=== PATIENT | male | born 1975 | race Caucasian/White ===

== ENCOUNTER 2017-03-16 07:58 | Emergency (ER) | payer OTHER ==
[2017-03-16 09:10] LABS: Eosinophils % (Auto) 0.7 % (0.0-4.3); Hematocrit 45.6 % (35.5-45.6); Hemoglobin 15.4 gm/dl (11.8-15.2); Mean Corpuscular HGB Conc 34 % (32-34); Mean Corpuscular Hemoglobin 31 pg (28-32); Mean Corpuscular Volume 92 fl (84-94); Platelet Count 173 K/mm3 (140-440); Red Blood Count 4.98 M/mm3 (3.65-5.03); Red Cell Distribution Width 16.3 % (13.2-15.2); White Blood Count 3.7 K/mm3 (4.5-11.0)
[2017-03-16 09:13] LABS: Urine Drugs of Abuse Note Disclamer
[2017-03-16 09:17] LABS: Anion Gap 25 mmol/L; BUN/Creatinine Ratio 18.57; Blood Urea Nitrogen 13 mg/dL (9-20); Calcium 8.2 mg/dL (8.4-10.2); Carbon Dioxide 21 mmol/L (22-30); Chloride 99.1 mmol/L (98-107); Glucose 86 mg/dL (75-100); Potassium 3.8 mmol/L (3.6-5.0); Sodium 141 mmol/L (137-145)
[2017-03-16 09:36] LABS: Bacteria,Urine 1+ /HPF (Negative); Bilirubin,Urine NEG (Negative); Blood,Urine MOD (Negative); Ketones,Urine 20 mg/dL (Negative); Leukocyte Esterase,Urine NEG (Negative); Mucus,Urine 2+ /HPF; Nitrite,Urine NEG (Negative)
--- NOTE | 2017-03-16 10:58 | Consultation ---
History of Present Illness - Reason for Consult Reason for consult: depression, etoh intoxication Medications and Allergies Allergies Allergy/AdvReac Type Severity Reaction Status Date / Time Penicillins Allergy Swelling Verified 03/16/17 08:38 Mental Status Exam - Vital signs Last Vital Signs Temp 98.8 F 03/16/17 08:38 Pulse 109 H 03/16/17 08:38 Resp 20 03/16/17 10:40 BP 142/98 03/16/17 08:38 Pulse Ox 98 03/16/17 10:40 Results Result Diagrams: 03/16/17 08:47 03/16/17 08:47 Abnormal lab results 03/16/17 03/16/17 03/16/17 Range/Units 08:47 08:47 08:47 WBC 3.7 L (4.5-11.0) K/mm3 Hgb 15.4 H (11.8-15.2) gm/dl RDW 16.3 H (13.2-15.2) % [place] % (Auto) 12.3 H (0.0-7.3) % Baso % (Auto) 2.0 H (0.0-1.8) % Lymph # 0.6 L (1.2-5.4) K/mm3 Carbon Dioxide 21 L (22-30) mmol/L Creatinine 0.7 L (0.8-1.5) mg/dL Calcium 8.2 L (8.4-10.2) mg/dL Plasma/Serum Alcohol 0.38 H (0-0.07) gm% All other labs normal. Assessment and Plan Assessment and plan: CHIEF COMPLAINT IN PATIENTS WORDS: HISTORY OF PRESENT ILLNESS REQUIRING ADMISSION TO INPATIENT LEVEL OF CARE: (Describe the onset of Illness, Intensity of Symptoms, and Circumstances Leading to Admission) This is a 41 year-old domiciled male who reports no formal past psychiatric diagnosis or treatment now currently presenting to the ER due to several weeks history of poor sleep onset and associated alcohol abuse. Patient notes that he is undergoing a separation from his due to marital conflict and infidelity. Currently on examination, the patient is very dysphoric and labile. Patient was tearful as well as elated during my examination, suggestive of a fairly labile affect. Patient notes very brief intervals of sleep for the past several weeks usually associated with copious amounts of alcohol use. Historically, patient notes that he has not received any treatment for mental health issues such as depression or bipolar disorder; however, patient does note that he was recently told he had bipolar disorder. Patient has been engaging in impulsive hypersexual behaviors, which led to the infidelity and consequent marital discord. PSYCHIATRIC REVIEW OF SYSTEMS: Substance: UDS pending Depression: Currently reports a low mood, frequently tearful, socially isolated with poor sleep onset and maintenance Sadie: Mood is labile, patient has frequent periods of irritable moods, not hyperverbal currently Psychosis: No auditory or visual hallucinations noted, patient is having overvalued ideas about others talking or speaking about him while he has been in the ER. Anxiety/ OCD/ PTSD: Patient appears to be experiencing somatic symptoms of anxiety as he worries about his current situation such as stomach ache Suicidality: Currently patient reports suicidal thoughts with intrusive ego dystonic ideas of cutting his wrist Other Self-Injurious Behavior: none currently, no SIB noted recently Violent/ Aggressive Behavior: none noted CURRENT MEDICATIONS: ( Psychiatric and Non-psychiatric ) None ALLERGIES: Penicillins PAST PSYCHIATRIC HISTORY: ( Prior Treatment, Precipitating Factors, Diagnosis, and Course of Treatment ) Inpatient: none reported Outpatient: none reported Prior Suicide Attempts: Unable to recall or report Prior Self-Injurious Behaviors: Unable to recall or report PAST PSYCHIATRIC MEDICATION TRIALS: denies MEDICAL HISTORY: (Chronic and Acute Illnesses, Current Medical Treatment, Recent Hospitalizations) Denies Detoxification / Withdrawal: Currently appears fairly anxious no tremors noted. Vitals appear stable with mild tachycardia MENTAL STATUS EXAM: General Appearance: Dressed in hospital gown, dysphoric and tearful Sensorium/Consciousness: alert and responding to external stimuli Eye Contact: Fair Attitude / Behavior: cooperative Psychomotor & Musculoskeletal Activity: WNL Mood: Sad and withdrawn Affect: Labile Speech / Language: normal Thought Processes: organized, logical, linear Thought Content: SI with plan to cut wrist, ruminative Perception: no AVH Orientation: person, place, time, situation Judgment What would you do if you smelled smoke in a crowded movie theater?: poor/impulsive Insight: poor Intelligence Vocabulary, general fund of knowledge, educational level: Average Capacity of ADLs: Independent STRENGTHS: PSYCHOSOCIAL AND ENVIRONMENTAL STRESSORS: Recent marital discord and likely undergoing a divorce ADMITTING DIAGNOSES Psychiatric: Alcohol abuse Substance induce mood disorder Evidence for the following: Rule out major depression Rule out bipolar disorder Medical: n/a INITIAL PLAN OF CARE AND TREATMENT GOALS: Evaluate for signs and symptoms of withdrawal and placed on CIWA protocol if appropriate Give one-time dose of lorazepam 2 mg IM for anxiety/agitation Start trazodone 100 mg at bedtime for insomnia Place on 1012 and refer for inpatient psychiatric hospitalization
[2017-03-16] MEDS ORDERED: ATIVAN IM ONE (11:02)
--- NOTE | 2017-03-16 15:26 | Emergency Department Report ---
ED General Adult HPI - General Chief complaint: Psych Stated complaint: UNABLE TO SLEEP Time Seen by Provider: 03/16/17 15:06 Source: patient, EMS (ems notes not available at time of chart dictation), RN notes reviewed Mode of arrival: Ambulatory Limitations: No Limitations - History of Present Illness Initial comments: This is a 41-year-old male. He has a past medical history of alcohol abuse and bipolar disorder. The patient is brought to the hospital by EMS for suicidality and alcohol intoxication. The patient reported that he is getting a divorce from his . He reports that he is having a hard time coping. He reports that he is not overdosed, but he has contemplated overdose. He denies trauma. Denies headache, neck pain, chest pain, abdominal pain or shortness of breath. His symptoms are constant. There are no exacerbating or relieving factors. He does not have access to guns or firearms. -: unknown Consistency: constant Improves with: none Worsens with: none Associated Symptoms: denies: chest pain, malaise, nausea/vomiting - Related Data Allergies Allergy/AdvReac Type Severity Reaction Status Date / Time Penicillins Allergy Swelling Verified 03/16/17 11:18 ED Review of Systems ROS: Stated complaint: UNABLE TO SLEEP Other details as noted in HPI Constitutional: denies: fever, malaise Eyes: denies: vision change ENT: denies: epistaxis Respiratory: denies: cough Cardiovascular: denies: chest pain Genitourinary: as per HPI. denies: dysuria Musculoskeletal: denies: back pain Neurological: denies: abnormal gait, vertigo Psychiatric: depression, suicidal thoughts. denies: homicidal thoughts ED Past Medical Hx - Past Medical History Previous Medical History?: Yes Additional medical history: Alcohol abuse, Bipolar and no meds - Surgical History Past Surgical History?: Yes Additional Surgical History: Tonsillectomy - Social History Smoking Status: Current Every Day Smoker Substance Use Type: Alcohol ED Physical Exam - General Limitations: No Limitations General appearance: alert, in no apparent distress - Head Head exam: Present: atraumatic, normocephalic - Eye Eye exam: Present: normal appearance, EOMI. Absent: nystagmus - ENT ENT exam: Present: normal exam, normal orophraynx, mucous membranes moist, normal external ear exam - Neck Neck exam: Present: normal inspection, full ROM. Absent: tenderness, meningismus - Respiratory Respiratory exam: Present: normal lung sounds bilaterally. Absent: respiratory distress, wheezes, rales, rhonchi, stridor, chest wall tenderness, accessory muscle use, decreased breath sounds, prolonged expiratory - Cardiovascular Cardiovascular Exam: Present: regular rate, normal rhythm, normal heart sounds. Absent: bradycardia, tachycardia, irregular rhythm, systolic murmur, diastolic murmur, rubs, gallop - GI/Abdominal GI/Abdominal exam: Present: soft, normal bowel sounds. Absent: distended, tenderness, guarding, rebound, rigid - Rectal Rectal exam: Present: deferred - Extremities Exam Extremities exam: Present: normal inspection, full ROM, normal capillary refill. Absent: tenderness, pedal edema, joint swelling, calf tenderness - Back Exam Back exam: Present: normal inspection, full ROM. Absent: tenderness, CVA tenderness (R), CVA tenderness (L), muscle spasm, paraspinal tenderness, vertebral tenderness - Neurological Exam Neurological exam: Present: alert, oriented X3, normal gait, other (Extraocular movements intact. Tongue midline. No facial droop. Facial sensation intact to light touch in the V1, V2, V3 distribution bilaterally. 5 and 5 strength in 4 extremities.. Sensation is intact to light touch in 4 extremities.). Absent : motor sensory deficit - Psychiatric Psychiatric exam: Present: depressed, suicidal ideation. Absent: homicidal ideation - Skin Skin exam: Present: warm, dry, intact, normal color. Absent: rash ED Course Vital Signs 03/16/17 03/16/17 08:38 10:40 Temperature 98.8 F Pulse Rate 109 H Respiratory 20 20 Rate Blood Pressure 142/98 O2 Sat by Pulse 97 98 Oximetry - Reevaluation(s) Reevaluation #1: 03/16/17 15:25 Differential diagnosis: Suicidality, alcohol intoxication, medical clearance for psychiatric placement Assessment and plan: 41-year-old male with suicidality in the context of alcohol intoxication. He walks with a steady gait. There are no signs of head trauma. He is alert to name, place, year and month. He is currently intoxicated at this time, however there is no report of trauma, and his physical exam does not suggest any traumatic injury. He is placed on a 1013. Laboratory studies ordered. Psychiatric consult is ordered. Reevaluation #2: 03/16/17 15:53 care transferred to [facility], who will follow up on tylenol and aspirin levels. ED Medical Decision Making - Lab Data Result diagrams: 03/16/17 08:47 03/16/17 08:47 Vital Signs 03/16/17 03/16/17 08:38 10:40 Temperature 98.8 F Pulse Rate 109 H Respiratory 20 20 Rate Blood Pressure 142/98 O2 Sat by Pulse 97 98 Oximetry Lab Results 03/16/17 03/16/17 03/16/17 Range/Units 08:47 08:47 08:47 WBC 3.7 L (4.5-11.0) K/mm3 RBC 4.98 (3.65-5.03) M/mm3 Hgb 15.4 H (11.8-15.2) gm/dl Hct 45.6 (35.5-45.6) % MCV 92 (84-94) fl MCH 31 (28-32) pg MCHC 34 (32-34) % RDW 16.3 H (13.2-15.2) % Plt Count 173 (140-440) K/mm3 Lymph % (Auto) 17.3 (13.4-35.0) % [place] % (Auto) 12.3 H (0.0-7.3) % Eos % (Auto) 0.7 (0.0-4.3) % Baso % (Auto) 2.0 H (0.0-1.8) % Lymph # 0.6 L (1.2-5.4) K/mm3 [place] # 0.5 (0.0-0.8) K/mm3 Eos # 0.0 (0.0-0.4) K/mm3 Baso # 0.1 (0.0-0.1) K/mm3 Seg Neutrophils % 67.7 (40.0-70.0) % Seg Neutrophils # 2.5 (1.8-7.7) K/mm3 Sodium 141 (137-145) mmol/L Potassium 3.8 (3.6-5.0) mmol/L Chloride 99.1 (98-107) mmol/L Carbon Dioxide 21 L (22-30) mmol/L Anion Gap 25 mmol/L BUN 13 (9-20) mg/dL Creatinine 0.7 L (0.8-1.5) mg/dL Estimated GFR > 60 ml/min BUN/Creatinine Ratio 18.57 % Glucose 86 (75-100) mg/dL Calcium 8.2 L (8.4-10.2) mg/dL Urine Color (Yellow) Urine Turbidity (Clear) Urine pH (5.0-7.0) Ur Specific [place] (1.003-1.030) Urine Protein (Negative) mg/dL Urine Glucose (UA) (Negative) mg/dL Urine Ketones (Negative) mg/dL Urine Blood (Negative) Urine Nitrite (Negative) Urine Bilirubin (Negative) Urine Urobilinogen (<2.0) mg/dL Ur Leukocyte Esterase (Negative) Urine WBC (Auto) (0.0-6.0) /HPF Urine RBC (Auto) (0.0-6.0) /HPF U Epithel Cells (Auto) (0-13.0) /HPF Urine Bacteria (Auto) (Negative) /HPF Urine Mucus /HPF Urine Opiates Screen Urine Methadone Screen Ur Barbiturates Screen Ur Phencyclidine Scrn Ur Amphetamines Screen U Benzodiazepines Scrn Urine Cocaine Screen U Marijuana (THC) Screen Drugs of Abuse Note Plasma/Serum Alcohol 0.38 H (0-0.07) gm% 03/16/17 03/16/17 Range/Units 08:54 08:54 WBC (4.5-11.0) K/mm3 RBC (3.65-5.03) M/mm3 Hgb (11.8-15.2) gm/dl Hct (35.5-45.6) % MCV (84-94) fl MCH (28-32) pg MCHC (32-34) % RDW (13.2-15.2) % Plt Count (140-440) K/mm3 Lymph % (Auto) (13.4-35.0) % [place] % (Auto) (0.0-7.3) % Eos % (Auto) (0.0-4.3) % Baso % (Auto) (0.0-1.8) % Lymph # (1.2-5.4) K/mm3 [place] # (0.0-0.8) K/mm3 Eos # (0.0-0.4) K/mm3 Baso # (0.0-0.1) K/mm3 Seg Neutrophils % (40.0-70.0) % Seg Neutrophils # (1.8-7.7) K/mm3 Sodium (137-145) mmol/L Potassium (3.6-5.0) mmol/L Chloride (98-107) mmol/L Carbon Dioxide (22-30) mmol/L Anion Gap mmol/L BUN (9-20) mg/dL Creatinine (0.8-1.5) mg/dL Estimated GFR ml/min BUN/Creatinine Ratio % Glucose (75-100) mg/dL Calcium (8.4-10.2) mg/dL Urine Color [place] (Yellow) Urine Turbidity Clear (Clear) Urine pH 5.0 (5.0-7.0) Ur Specific [place] 1.023 (1.003-1.030) Urine Protein 100 mg/dl (Negative) mg/dL Urine Glucose (UA) Neg (Negative) mg/dL Urine Ketones 20 (Negative) mg/dL Urine Blood Mod (Negative) Urine Nitrite Neg (Negative) Urine Bilirubin Neg (Negative) Urine Urobilinogen 2.0 (<2.0) mg/dL Ur Leukocyte Esterase Neg (Negative) Urine WBC (Auto) 1.0 (0.0-6.0) /HPF Urine RBC (Auto) 2.0 (0.0-6.0) /HPF U Epithel Cells (Auto) < 1.0 (0-13.0) /HPF Urine Bacteria (Auto) 1+ (Negative) /HPF Urine Mucus 2+ /HPF Urine Opiates Screen Presumptive negative Urine Methadone Screen Presumptive negative Ur Barbiturates Screen Presumptive negative Ur Phencyclidine Scrn Presumptive negative Ur Amphetamines Screen Presumptive negative U Benzodiazepines Scrn Presumptive negative Urine Cocaine Screen Presumptive negative U Marijuana (THC) Screen Presumptive negative Drugs of Abuse Note Disclamer Plasma/Serum Alcohol (0-0.07) gm% Critical care attestation.: If time is entered above; I have spent that time in minutes in the direct care of this critically ill patient, excluding procedure time. ED Disposition Clinical Impression: Alcohol intoxication, Suicidal ideation, Medical clearance for psychiatric admission Disposition: DC/TX-65 PSY HOSP/PSY UNIT Is pt being admited?: No Does the pt Need Aspirin: No Condition: Stable Referrals: PRIMARY CARE, [Primary Care Provider] - 3-5 Days
[2017-03-16] MEDS ORDERED: ATIVAN IM PRN (15:53)
[2017-03-16] MEDS ORDERED: DESYREL PO SCH (22:00)
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
[2017-03-17] MEDS ORDERED: DESYREL PO SCH (22:00)
--- NOTE | 2017-03-18 10:05 | Progress Note ---
Subjective - Reason for Consult Consult date: 03/18/17 Reason for consult: Psychiatry Follow-up - Chief Complaint Chief complaint: "I slept better" This is a 41 year-old domiciled male who reports no formal past psychiatric diagnosis or treatment now currently presenting to the ER due to several weeks history of poor sleep onset and associated alcohol abuse. Today patient is calm and cooperative during assessment. He stated that he spoke with his , and that didn't go well. He stated that he hurt for his family and want to do better. Patient stated that he feel suicidal, but it may change later when he get his thoughts together. He denies HI's, AVH's and rate his depression 6/10, with 10 being the worse. Yesterday patient rated his depression 8/10, with 10 being the worse. He stated that he slept better and does not crave alcohol (etoh ). Patient denies any side effects of psy medications. Mental Status Exam - Vital signs Last Vital Signs Temp 98.4 F 03/17/17 19:58 Pulse 86 03/17/17 19:58 Resp 16 03/17/17 19:58 BP 134/72 03/17/17 19:58 Pulse Ox 100 03/17/17 19:58 - Exam Narrative exam: MSE: Appearance: calm, cooperative Behavior: good eye contact Speech: regular rate and tone Mood: "I want to feel better" sad, withdrawn Affect: congruent to mood Thought Process: linear Thought Content: denies HI's and AVH's Motor Activity: ambulatory Cognition: A/Ox 3 Insight: fair Judgment: fair Assessment and Plan Impression: Alcohol Use DO, Substance induce Mood Disorder. Today patient is calm and cooperative during assessment. Patient want to be welcomed back to his family, but understands that may take sometime. Passive SI's. No acute withdrawals (alcohol) noted on assessment. Recommendation/Plan: Continue 1013 with placement to inpatient psy services. Continue Trazodone to 150 mg for depression/sleep consolidation. Discussed possible priapism, suicidality, and medication induced rj with patient reference antidepressants.
[2017-03-18 12:05] VITALS: BP 121/82
== END 2017-03-18 13:25 ==
LOC: EEVIPCON 07:58 → ED 07:58
DX: F10.129 Alcohol abuse with intoxication, unspecified (principal); R45.851 Suicidal ideations; F17.200 Nicotine dependence, unspecified, uncomplicated
CPT/HCPCS: 36415; 80048; 80307; 81001; 85025; 96372; 99285; G0480; J2060; 80320

== ENCOUNTER 2018-11-19 02:53 | Emergency (ER) | payer SELFPAY ==
[2018-11-19] MEDS ORDERED: GEODON IM ONE ×2 (04:34→04:38)
[2018-11-19] MEDS ORDERED: WATER FOR INJ Sterile (PF) 10 ML ONE (04:34)
--- NOTE | 2018-11-19 04:41 | Emergency Department Report ---
ED Psych HPI - General Chief Complaint: Psych Stated Complaint: EMMANUEL EVDEREK Time Seen by Provider: 11/19/18 04:24 Source: police Mode of arrival: Ambulatory - History of Present Illness Initial Comments: Patient is 43 years old male with history of bipolar disorder. Patient brought to the emergency room via police department after patient called and stated that he wanted to kill himself. Patient was residing in one of the local hotel and he called the police. Patient stated that he is confused about a lot of things in the life and he doesn't know how to handle it. When I asked him if he has any plan: Patient stated that whatever he can get his hand on he will use it. Patient stated that he had previous attempts by cutting his wrist. Patient denies any visual or auditory hallucination. No homicidal ideation. Patient is very aggressive to the ER staff and making inappropriate comments. MD Complaint: suicidal ideation, feels depressed Associated Psychiatric Symptoms: depression, suicidal ideation History of same: Yes Quality: constant Context: recent alcohol abuse If Self Harm: admits thoughts of, self-inflicted trauma - Related Data Home Medications Medication Instructions Recorded Confirmed Last Taken No Known Home Medications [No 03/16/17 03/16/17 Unknown Reported Home Medications] Allergies Allergy/AdvReac Type Severity Reaction Status Date / Time Penicillins Allergy Swelling Verified 08/14/18 07:35 ED Review of Systems ROS: Stated complaint: EMMANUEL EVAL Other details as noted in HPI Comment: All other systems reviewed and negative Constitutional: denies: chills, fever Respiratory: denies: cough, orthopnea, shortness of breath, SOB with exertion, SOB at rest Cardiovascular: denies: chest pain, palpitations Gastrointestinal: denies: abdominal pain, nausea, vomiting, diarrhea, constipation, melena Neurological: denies: headache ED Past Medical Hx - Past Medical History Previous Medical History?: Yes Hx Psychiatric Treatment: Yes (Bipolar) Additional medical history: Alcohol abuse, Bipolar and no meds - Surgical History Additional Surgical History: Tonsillectomy - Social History Smoking Status: Current Every Day Smoker Substance Use Type: Alcohol - Medications Home Medications: Home Medications Medication Instructions Recorded Confirmed Last Taken Type No Known Home Medications [No 03/16/17 03/16/17 Unknown History Reported Home Medications] ED Physical Exam - General Limitations: No Limitations General appearance: alert, in no apparent distress - Head Head exam: Present: atraumatic, normocephalic, normal inspection - Eye Eye exam: Present: normal appearance, PERRL - ENT ENT exam: Present: normal exam, normal orophraynx, mucous membranes moist - Neck Neck exam: Present: normal inspection, full ROM. Absent: tenderness, meningismus, lymphadenopathy, thyromegaly - Respiratory Respiratory exam: Present: normal lung sounds bilaterally. Absent: respiratory distress, wheezes, rales, rhonchi, chest wall tenderness, accessory muscle use, decreased breath sounds, prolonged expiratory - Cardiovascular Cardiovascular Exam: Present: regular rate, normal rhythm, normal heart sounds - GI/Abdominal GI/Abdominal exam: Present: soft, normal bowel sounds. Absent: distended, tenderness, guarding, rebound, rigid, organomegaly, mass, bruit, pulsatile mass, hernia - Extremities Exam Extremities exam: Present: normal inspection, full ROM, normal capillary refill - Back Exam Back exam: Present: normal inspection, full ROM. Absent: CVA tenderness (R), CVA tenderness (L), muscle spasm, paraspinal tenderness - Neurological Exam Neurological exam: Present: alert, oriented X3, CN II-XII intact - Psychiatric Psychiatric exam: Present: depressed, agitated, anxious, manic, suicidal ideation. Absent: homicidal ideation - Skin Skin exam: Present: warm, intact, normal color ED Course Vital Signs 11/19/18 04:14 Temperature 97.8 F Pulse Rate 123 H Respiratory 18 Rate Blood Pressure 129/95 [Left] O2 Sat by Pulse 97 Oximetry Critical care attestation.: If time is entered above; I have spent that time in minutes in the direct care of this critically ill patient, excluding procedure time. ED Disposition Clinical Impression: Acute psychosis, Suicidal ideation Disposition: DC/TX-65 PSY HOSP/PSY UNIT Is pt being admited?: No Condition: Stable Referrals: ANASTASIIA VELASQUEZ MD [Primary Care Provider] - 3-5 Days
[2018-11-19] MEDS ORDERED: WATER FOR INJ (PF) IM ONE (05:00)
[2018-11-19 05:20] LABS: Basophils % (Auto) 0.3 % (0.0-1.8); Eosinophils % (Auto) 0.1 % (0.0-4.3); Hematocrit 47.7 % (35.5-45.6); Hemoglobin 16.3 gm/dl (11.8-15.2); Lymphocytes % (Auto) 11.1 % (13.4-35.0); Mean Corpuscular HGB Conc 34 % (32-34); Mean Corpuscular Volume 88 fl (84-94); Monocytes # (Auto) 0.6 K/mm3 (0.0-0.8); Platelet Count 277 K/mm3 (140-440); Red Blood Count 5.43 M/mm3 (3.65-5.03); Red Cell Distribution Width 14.6 % (13.2-15.2)
[2018-11-19 05:36] LABS: BUN/Creatinine Ratio 19; Blood Urea Nitrogen 15 mg/dL (9-20); Calcium 8.6 mg/dL (8.4-10.2); Hemolysis Index 14
[2018-11-19 12:22] LABS: Bilirubin,Urine NEG (Negative); Blood,Urine NEG (Negative); Color,Urine Yellow (Yellow); Mucus,Urine FEW /HPF; Protein,Urine <15 mg/dL mg/dL (Negative); Urobilinogen,Urine < 2.0 mg/dL (<2.0)
[2018-11-19 13:14] LABS: Amphetamine Screen,Urine PRESUMPTIVE NEGATIVE; Benzodiazepines Screen,Urine PRESUMPTIVE NEGATIVE; Cannabinoid Screen,Urine PRESUMPTIVE NEGATIVE; Cocaine Screen,Urine PRESUMPTIVE NEGATIVE; Methadone Screen,Urine PRESUMPTIVE NEGATIVE; Opiate Screen,Urine PRESUMPTIVE NEGATIVE
--- NOTE | 2018-11-19 14:38 | Consultation ---
History of Present Illness - Reason for Consult Consult date: 11/19/18 Reason for consult: Initial Psychiatric Evaluation - Chief Complaint Chief complaint: " I was thinking about hurting myself" - History of Present Psychiatric Illness Patient is 43 years old male that presents to the emergency room via police department after patient called and stated that he wanted to kill himself. Patient was residing in one of the local hotel and he called the police. Patient has a PPHx Bipolar Disorder. Today the patient is cooperative but anxious during the assessment. He verbalizes " a lot of things were buildi ng up. Currently I'm unemployed. I recently lost my aunt to cancer, bills are piling up, and I'm having problems with my ." Per patient he is prescribed Seroquel, Lamictal, and Lexapro. He has been noncompliant with medication x 3 days. Patient states that he has a drink on 11-18-18. He reports mood fluctuations, decrease sleep without Seroquel, and appropriate energy/appetite. He continues to endorse suicidal ideations with plan for type copyist to kill him. He denies HI's, A/VH's, delusions, withdrawal symptoms, and cravings. Diaphoresis noted. Current Psychiatric Medication: Seroquel 200mg po QHS, Lamictal- " I don't remember the dose, and Lexapro- " I don't remember the dose." Past Psychiatric History: Bipolar Disorder (" I can't recall); Approximately 6 inpatient hospitalizations; [place] Psychiatrist- [facility] [place]; 4 previous suicide attempts ( "cutting and overdosing"), last attempt - " maybe 2 years ago" Past Medication Trials: " I can't remember" History of Trauma/Abuse: Patient denies sexual, physical, and mental abuse. History of Drug/Substance Abuse: Alcohol, 1 pint x 3 times weekly, last use 11-18-18, first drink- 7 years old. Serum alcohol 0.26. UDS negative. Social History: Some college- highest level of education; no source of income; 1 son/1 daughter; limited support system Family History of Psychiatric Illness/Substance Abuse: Patient denies. Medications and Allergies Allergies Allergy/AdvReac Type Severity Reaction Status Date / Time Penicillins Allergy Swelling Verified 11/22/18 07:35 Home Medications Medication Instructions Recorded Confirmed Last Taken Type Escitalopram [Lexapro] 10 mg PO DAILY 11/19/18 11/19/18 Unknown History QUEtiapine [SEROquel] 200 mg PO DAILY 11/19/18 11/19/18 Unknown History Mental Status Exam - Vital signs Last Vital Signs Temp 97.9 F 11/19/18 09:00 Pulse 113 H 11/19/18 09:00 Resp 18 11/19/18 09:00 BP 133/86 11/19/18 09:00 Pulse Ox 97 11/19/18 09:00 - Exam Narrative exam: Mental Status Exam Appearance: calm, cooperative Behavior: regular eye contact Speech: regular rate and tone Mood: "okay" Affect: congruent to mood Thought Process: circumstantial Thought Content: denies SI/HI's and AVH's Motor Activity: sitting up in bed Cognition: A/O x3 Insight: fair Judgment: fair Results Result Diagrams: 11/19/18 05:02 11/19/18 05:02 Abnormal lab results 11/19/18 11/19/18 11/19/18 Range/Units 05:02 05:02 05:02 RBC 5.43 H (3.65-5.03) M/mm3 Hgb 16.3 H (11.8-15.2) gm/dl Hct 47.7 H (35.5-45.6) % Lymph % (Auto) 11.1 L (13.4-35.0) % Lymph # 1.0 L (1.2-5.4) K/mm3 Seg Neutrophils % 81.5 H (40.0-70.0) % Carbon Dioxide 21 L (22-30) mmol/L Salicylates < 0.3 L (2.8-20.0) mg/dL Acetaminophen (10.0-30.0) ug/mL Plasma/Serum Alcohol (0-0.07) % 11/19/18 11/19/18 Range/Units 05:02 05:02 RBC (3.65-5.03) M/mm3 Hgb (11.8-15.2) gm/dl Hct (35.5-45.6) % Lymph % (Auto) (13.4-35.0) % Lymph # (1.2-5.4) K/mm3 Seg Neutrophils % (40.0-70.0) % Carbon Dioxide (22-30) mmol/L Salicylates (2.8-20.0) mg/dL Acetaminophen < 5.0 L (10.0-30.0) ug/mL Plasma/Serum Alcohol 0.26 H (0-0.07) % All other labs normal. Assessment and Plan Assessment and plan: Impression: PPHx Bipolar Disorder . Mood Disorder Unspecified. Today the patient is cooperative but anxious during the assessment. Continues to endorse suicidal ideations with plan for police to kill him. He denies HI's, psychosis. UDS negative. Recommendation/Plan: 1. Continue 1013. Will reassessin 24 hours. 2. Start home medication: Seroquel 100mg po QHS mood, Lamictal 25mg po BID depression/mood, Lexapro 10mg po QAM depression/anxiety. Patient educated on metabolic side effects of Seroquel/ Lamictal (SJS) and the possibility of increase suicidality of Lexapro. Patient verbalizes understanding. 3. Place on [facility] protocol for possible alcohol withdrawal. Disposition: Once collateral information is gathered, proper disposition will be determined. Will refer to inpatient psychiatric facilities. Staffed with Dr. Elvira Munson.
[2018-11-19] MEDS ORDERED: ATIVAN IV PRN (19:52)
[2018-11-19] MEDS ORDERED: ATIVAN PO PRN ×2 (19:52)
[2018-11-19] MEDS ORDERED: ZOFRAN IM ONE (20:45)
[2018-11-19] MEDS: LaMICtal PO SCH ×2 (21:46→23:12)
--- NOTE | 2018-11-20 11:42 | Progress Note ---
Subjective - Reason for Consult Consult date: 11/20/18 Reason for consult: Psychiatry Follow-up - Chief Complaint Chief complaint: " I don't want to live" 43 y.o. AA male who presented to the ER for SI's with a plan to be shot by the police. Today the patient is calm, but withdrawn during the assessment. He stated that he is experiencing several life stressors ( in his family, family issues, and unemployment) that has exacerbated his depression. He stated, "I don't want to live." He continues to endorse SI's when asked. He denies HI's and AVH's. He denies any side effects of his medications. Mental Status Exam - Vital signs Last Vital Signs Temp 98.3 F 11/20/18 00:08 Pulse 102 H 11/20/18 00:08 Resp 18 11/20/18 08:00 BP 142/78 11/20/18 00:08 Pulse Ox 99 11/20/18 08:00 - Exam Narrative exam: MSE: Appearance: calm, cooperative Behavior: poor eye contact Speech: regular rate and tone Mood: "depressed" Affect: congruent to mood Thought Process: circumstantial Thought Content: denies HI's and AVH's Motor Activity: sitting up in bed Cognition: A/O x3 Insight: variable Judgment: poor Assessment and Plan Impression: Unspecified Mood DO. Today the patient is calm, but withdrawn during the assessment. The patient continues to endrse SI's. DDx: Bipolar DO Recommendation/Plan: Continue 1013 and Seroquel 100 mg O HS for mood, Lamictal 25 mg PO BID mood, and Lexapro 10 mg PO QAM fd depression. Discussed possible suicidality/medication induced rj with the patient reference Lexapro. Discussed possible metabolic side effects of Seroquel with the patient. Discussed possible SJS reference Lamictal with the patient. Dispo. The patient was referred to inpatient psy services. Will staff with Dr Kaplan. .
[2018-11-20] MEDS: LaMICtal PO SCH ×2 (13:04→21:55)
[2018-11-20] MEDS: LEXAPRO PO SCH (13:06)
[2018-11-21] MEDS: LaMICtal PO SCH ×2 (10:00→21:59)
[2018-11-21] MEDS: LEXAPRO PO SCH (10:00)
--- NOTE | 2018-11-21 13:49 | Progress Note ---
Subjective - Reason for Consult Consult date: 11/21/18 Reason for consult: Psychiatry Follow-up - Chief Complaint Chief complaint: "It's hard"" 43 y.o. AA male who presented to the ER for SI's with a plan to be shot by the police. Today the patient is calm, but still withdrawn during the assessment. He stated that nothing has changed reference his mental health. He stated that he wish he don't wake up so he caln sleep his life away. He denies HI's and AVH's. He denies He denies any side effects of his medications. Mental Status Exam - Vital signs Last Vital Signs Temp 98.4 F 11/21/18 08:00 Pulse 92 H 11/21/18 08:00 Resp 16 11/21/18 08:00 BP 135/95 11/21/18 08:00 Pulse Ox 97 11/21/18 08:00 - Exam Narrative exam: MSE: Appearance: calm, cooperative Behavior: poor eye contact Speech: regular rate and tone Mood: "depressed" Affect: congruent to mood Thought Process: circumstantial Thought Content: denies HI's and AVH's Motor Activity: sitting up in bed Cognition: A/O x3 Insight: variable Judgment: poor Assessment and Plan Impression: Unspecified Mood DO. Today the patient is calm, but still withdrawn during the assessment. The patient continues to endrse SI's. DDx: Bipolar DO Recommendation/Plan: Continue 1013 and Seroquel 100 mg PO HS for mood, Lamictal 25 mg PO BID mood, and Lexapro 10 mg PO QAM fd depression. Discussed possible suicidality/medication induced rj with the patient reference Lexapro. Discussed possible metabolic side effects of Seroquel with the patient. Discussed possible SJS reference Lamictal with the patient. Dispo. The patient was referred to inpatient psy services. Will staff with Dr Kaplan. .
[2018-11-21 20:58] VITALS: BP 149/98
== END 2018-11-22 00:01 ==
LOC: EEVIPCON 02:53 → ED 02:53
DX: F39 Unspecified mood [affective] disorder (principal); F31.9 Bipolar disorder, unspecified; F17.200 Nicotine dependence, unspecified, uncomplicated; Z90.89 Acquired absence of other organs; Z88.0 Allergy status to penicillin
CPT/HCPCS: 36415; 80048; 80307; 81001; 85025; 96372; 99285; G0480; J2405; J3486; 80320